=== PATIENT | female | born 1955 | race Caucasian/White ===

== ENCOUNTER 2019-03-04 07:16 | Day surgery (SDC) | payer BC ==
[~2019-03-04 07:16] MED LIST: Lactated Ringers 1,000 ML IV SCH
--- NOTE | 2019-03-04 07:49 | PCM.PREANE ---
Preanesthetic Assessment - Anesthesia/Transfusion/Family Hx Anesthesia History: Prior Anesthesia Without Reaction Other Type of Anesthesia Reaction Comment: DENIES ANY PROBLEMS WITH ANESTHESIA Family History of Anesthesia Reaction: No Transfusion History: No Prior Transfusion(s) - Review of Systems General: No Symptoms Pulmonary: Other ([facility] uses CPAP nightly) Cardiovascular: No Symptoms Gastrointestinal: No Symptoms Neurological: No Symptoms Other: Reports: None - Physical Assessment Height: 5 ft 6 in Weight: 98.43 kg ASA Class: 2 Mental Status: Alert & Oriented x3 Airway Class: Mallampati = 2 Dentition: Reports: Normal Dentition ROM/Head Extension: Full Lungs: Clear to Auscultation, Normal Respiratory Effort Cardiovascular: Regular Rate, Regular Rhythm - Allergies Allergies/Adverse Reactions: Allergies Allergy/AdvReac Type Severity Reaction Status Date / Time oxycodone Allergy Vomiting Verified 02/25/19 13:47 - Blood Blood Available: No - Anesthesia Plan Pre-Op Medication Ordered: None - Acknowledgements Anesthesia Type Planned: General Anesthesia Pt an Appropriate Candidate for the Planned Anesthesia: Yes Alternatives and Risks of Anesthesia Discussed w Pt/Guardian: Yes Pt/Guardian Understands and Agrees with Anesthesia Plan: Yes Additional Comments: PMH: [facility]- uses CPAP nightly, [place], PLAN: propofol tiva, avoid benzos and opioids PreAnesthesia Questionnaire HEENT History: Reports: Other (See Below) Other HEENT History: wears glasses Respiratory History: Reports: Sleep Apnea Other Respiratory History: uses CPAP every night Gastrointestinal History: Reports: Diverticulosis, GERD Other Gastrointestinal History: no GERD since last EGD [employer] History: Reports: Endocrine/Metabolic History: Reports: Obesity/BMI 30+ - Past Surgical History GI Surgical History: Reports: Colonoscopy, EGD - SUBSTANCE USE Smoking Status *Q: Never Smoker Recreational Drug Use History: No - HOME MEDS Home Medications: Home Meds . [No Known Home Meds] 02/25/19 [History] - CURRENT (IN HOUSE) MEDS Current Meds: Current Medications Lactated Ringer's (Ringers, Lactated) 1,000 mls @ 125 mls/hr IV ASDIRECTED [facility]
--- NOTE | 2019-03-04 09:17 | PCM.OPNOTE ---
- General Post-Op/Procedure Note Date of Surgery/Procedure: 03/04/19 Operative Procedure(s): egd w bx Findings: see [id number] Pre Op Diagnosis: gerd Post-Op Diagnosis: esophagitis and gastritis Anesthesia Technique: Moderate Sedation Primary Surgeon: Horace Hi Pathology: sent Complications: None Condition: Good
[2019-03-04] MEDS ORDERED: fentaNYL 100 MCG/2 ML SDV ONE (09:21)
[2019-03-04] MEDS ORDERED: Propofol 200 MG/20 ML SDV ONE (09:21)
[2019-03-04] MEDS ORDERED: Ondansetron 4 MG/2 ML SDV ONE (09:21)
[2019-03-04 09:58] VITALS: BP 135/76; PULSE 76
--- NOTE | 2019-03-04 10:19 | PCM48HPAN ---
Post Anesthesia Note - EVALUATION WITHIN 48HRS OF ANESTHETIC Vital Signs in Normal Range: Yes Patient Participated in Evaluation: Yes Respiratory Function Stable: Yes Airway Patent: Yes Cardiovascular Function Stable: Yes Hydration Status Stable: Yes Pain Control Satisfactory: Yes Nausea and Vomiting Control Satisfactory: Yes Mental Status Recovered: Yes Vital Signs: Last Vital Signs Temp 97.3 F 03/04/19 08:50 Pulse 76 03/04/19 09:10 Resp 16 03/04/19 09:10 BP 135/76 03/04/19 09:10 Pulse Ox 94 L 03/04/19 09:10
--- NOTE | 2019-03-04 10:19 | PCM.POSTAN ---
POST ANESTHESIA ASSESSMENT - MENTAL STATUS Mental Status: Alert, Oriented - VITAL SIGNS Vital Signs: Last Vital Signs Temp 97.3 F 03/04/19 08:50 Pulse 76 03/04/19 09:10 Resp 16 03/04/19 09:10 BP 135/76 03/04/19 09:10 Pulse Ox 94 L 03/04/19 09:10 - RESPIRATORY Respiratory Status: Respiratory Rate WNL, Airway Patent, O2 Saturation Stable - CARDIOVASCULAR CV Status: Pulse Rate WNL, Blood Pressure Stable - GASTROINTESTINAL GI Status: No Symptoms - POST OP HYDRATION Hydration Status: Adequate & Stable
--- NOTE | 2019-03-04 11:31 | OR ---
SURGEON: Horace Hi MD DATE OF PROCEDURE: 03/04/2019 PREOPERATIVE DIAGNOSIS: Frequent gastroesophageal reflux disease. POSTOPERATIVE DIAGNOSES: Esophagitis and gastritis. PROCEDURE PERFORMED: Esophagogastroduodenoscopy with biopsy. DESCRIPTION OF PROCEDURE: EGD: The patient was taken to the endoscopy room, and with the TRAVELING ACCOUNTANT, Diprivan was administered. A well-lubricated EGD scope was gently inserted through the oropharynx, down the esophagus, passing through the gastroesophageal junction, into the stomach. The mucosa was examined upon the passage. Any etiology will be noted. Once in the stomach, we continued to advance to the distal antrum, passed through the pylorus into the second portion of the duodenum. Again, the mucosa was examined for any abnormality and etiology. The scope was then retrieved back to the stomach and then retroflexed to look at the fundus of the stomach. If a biopsy was indicated, we will biopsy the antrum, body, and gastroesophageal junction. The air will be sucked out while the scope is retrieved to reduce the patient's discomfort. The patient tolerated the procedure well. There were no intraoperative complications. Dr. Hi was present through the whole procedure. Prior to surgery, a time-out had been called, the patient identified, procedure identified and antibiotic administered. FINDINGS: 1. The patient is easily sedated with TRAVELING ACCOUNTANT and Diprivan, the patient is soundly snoring. 2. Oropharynx and proximal esophagus are free of disease, inflammation, or stricture. Distal esophagus at GE junction at 40 shows a flame-like structure, salmon-colored change, consistent with moderate amount of GERD as well as esophagitis. Bleeding is not observed, ulcer is not observed, but observed a healed area as well as denuding of the lining. Stomach rugae are normal in appearance. Antrum is slightly inflamed with some areas that suggest healed ulcer. Again, bhupinder ulcer and bleeding are not observed. Duodenum is grossly normal. Retroflexed look at the fundus of stomach, there is no hiatal hernia. Biopsy done at antrum, in particular picked the one with the likely inflamed area and also biopsy done in the gastric body. There were 3 small tiny polyps and biopsied one. 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 Sucked out the gas while scope pulling out. During the whole study, there was no blood, ulcer, bile, or food particle observed. With the patient's esophagitis, the patient probably needs to be treated as well as a followup EGD in 6 months. BENJIE RUIZ /[id number]
== END 2019-03-04 10:05 | disposition home or self-care (01) ==
LOC: MW.SDS 07:16
PROVIDERS: ATTEND Surgery
DX: K21.0 Gastro-esophageal reflux disease with esophagitis (principal); K29.30 Chronic superficial gastritis without bleeding; G47.33 Obstructive sleep apnea (adult) (pediatric); E66.9 Obesity, unspecified; Z99.89 Dependence on other enabling machines and devices; Z88.5 Allergy status to narcotic agent; Z68.35 Body mass index [BMI] 35.0-35.9, adult
CPT/HCPCS: 43239; J2405; J2704; J3010; J7120

== ENCOUNTER 2025-01-12 07:52 | Day surgery (SDC) | payer MEDICARE ==
[~2025-01-12 07:52] MED LIST changes: +Albuterol 0.083% 2.5 MG/3 ML Neb Soln NEB PRN; -Lactated Ringers 1,000 ML IV SCH; +Naloxone 0.4 MG/ML SDV IVPUSH PRN; +Ondansetron 4 MG/2 ML SDV IVPUSH PRN; +Sodium Chloride 0.9% 10 ML Syringe FLUSH PRN; +Sodium Chloride 0.9% 2.5 ML Syringe FLUSH PRN; +ceFAZolin 2 GM in Water For Injection, Sterile 20 ML IVPUSH ONE; +fentaNYL 50 MCG/ML SDV IVPUSH PRN
[2025-01-12] MEDS: Lactated Ringers 1,000 ML IV SCH (08:22)
[2025-01-12] MEDS ORDERED: fentaNYL 100 MCG/2 ML SDV ONE (08:55)
[2025-01-12] MEDS ORDERED: Midazolam 1 MG/ML 2 ML SDV ONE (08:55)
[2025-01-12] MEDS ORDERED: Propofol 200 MG/20 ML SDV ONE (08:55)
[2025-01-12] MEDS ORDERED: dexmedeTOMIDine HCl 200 MCG/2 ML SDV ONE (08:58)
[2025-01-12] MEDS ORDERED: Ropivacaine 0.5% 5 MG/ML 30 ML SDV ONE (09:02)
[2025-01-12] MEDS ORDERED: Ondansetron 4 MG/2 ML SDV ONE (10:23)
[2025-01-12] MEDS ORDERED: Dexamethasone 4 MG/ML 5 ML MDV ONE (10:23)
[2025-01-12] MEDS ORDERED: Ketorolac 30 MG/ML SDV ONE (11:32)
[2025-01-12] MEDS: Acetaminophen/HYDROcodone 325-5 MG Tab PO ONE (13:50)
[2025-01-12 16:21] VITALS: BP 110/67; PULSE 62
[2025-01-12] MEDS: Acetaminophen/HYDROcodone 325-5 MG Tab ONE (16:30)
== END 2025-01-12 15:30 | disposition home or self-care (01) ==
LOC: MW.SDS 07:52
PROVIDERS: ATTEND Surgery
DX: K43.9 Ventral hernia without obstruction or gangrene (principal); K66.0 Peritoneal adhesions (postprocedural) (postinfection); Z53.31 Laparoscopic surgical procedure converted to open procedure; I10 Essential (primary) hypertension; E66.9 Obesity, unspecified; Z88.5 Allergy status to narcotic agent; Z88.8 Allergy status to other drugs, medicaments and biological substances; Z68.36 Body mass index [BMI] 36.0-36.9, adult; Z79.899 Other long term (current) drug therapy
CPT/HCPCS: 00840; 64488; A9270-GY; C1781; J0665; J0690; J1100; J1171; J1885; J2003; J2250; J2371; J2405; J2704; J2795; J3010; J3490; J7120